=== PATIENT | male | born 1980 | race Caucasian/White ===

== ENCOUNTER 2017-11-04 16:27 | Emergency (ER) | payer OTHER ==
[~2017-11-04 16:27] MED LIST: ISOVUE-370 76%-LOCM 1 ML ONE
[2017-11-04] MEDS ORDERED: Fentanyl 100 MCG/2 ML VIAL ONE (17:26)
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
== END 2017-11-04 19:15 | disposition home or self-care (01) ==
LOC: ERS 16:27
DX: S42.002A Fracture of unspecified part of left clavicle, initial encounter for closed fracture (principal); S42.112A Displaced fracture of body of scapula, left shoulder, initial encounter for closed fracture; K50.90 Crohn's disease, unspecified, without complications; Z87.891 Personal history of nicotine dependence; V49.59XA Passenger injured in collision with other motor vehicles in traffic accident, initial encounter
CPT/HCPCS: 70450; 71260; 72125; 74177; 96374; J3010

== ENCOUNTER 2018-02-27 07:42 | Outpatient (CLI) | payer OTHER ==
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
== END 2018-02-27 07:43 | disposition home or self-care (01) ==
LOC: TBSIIMAG 07:42
PROVIDERS: ATTEND Family Medicine
DX: M24.9 Joint derangement, unspecified (principal); R93.7 Abnormal findings on diagnostic imaging of other parts of musculoskeletal system